=== PATIENT | female | born 1965 | race African-American/Black ===

== ENCOUNTER 2016-12-13 05:30 | Emergency (ER) | payer OTHER ==
[~2016-12-13] VITALS: Ht 165.1 cm; Wt 94.8 kg
[~2016-12-13 05:30] MED LIST: ACYCLOVIR800 MG PO; ALBUTEROL SULF8.5 GM INH; ALBUTEROL2.5 MG/3 M HHN; AZITHROMYCIN250 MG ORAL; BACTRIM DS TAB1 EAC1 ORAL; BACTRIM-DS1 EA ORAL; CEPHALEXIN500 MG ORAL; KEFLEX500 MG ORAL; METAPROTERENOL PO; METAPROTERENOL20 MG PO; NKM
[2016-12-13] MEDS ORDERED: KEFLEX500 MG ORAL (06:00)
[2016-12-13] MEDS ORDERED: Phenazopyridine 200mg tab ORAL ONE (06:00)
[2016-12-13] MEDS ORDERED: PHENAZOPYRIDIN200 MG ORAL (06:00)
[2016-12-13] MEDS ORDERED: Cephalexin 500mg cap ORAL ONE (06:00)
--- NOTE | 2016-12-13 06:00 | Emergency Room Report ---
History of Present Illness General Chief Complaint: Back Pain-No Injury Source: Patient Present Illness HPI This is a 51-year-old female who presents with chief complaint of dysuria, frequency and urgency for the last 2 days. Lower back pain. No vomiting. Denies any nausea vomiting. Denies any diarrhea. History of UTI in the past. Allergies: Coded Allergies: No Known Allergies (Unverified , 12/04/12) Patient History Past Medical History: see triage record, old chart reviewed Past Surgical History: other Pertinent Family History: none Social History: Denies: smoking Last Menstrual Period: November Now: No Immunizations: other Reviewed Nursing Documentation: PMH: Agreed, PSxH: Agreed Nursing Documentation-PMH Hx Cardiac Problems: No Hx Hypertension: Yes Hx Pacemaker: No Hx Asthma: Yes Hx COPD: No Hx Diabetes: No Hx Cancer: No Hx Gastrointestinal Problems: No Hx Dialysis: No Hx Neurological Problems: No Hx Cerebrovascular Accident: No Hx Seizures: No Review of Systems Eye: Denies: blurred vision, eye pain ENT: Denies: ear pain, nose congestion, throat swelling Respiratory: Denies: cough, shortness of breath Cardiovascular: Denies: chest pain, palpitations Gastrointestinal: Denies: abdominal pain, diarrhea, nausea, vomiting Genitourinary: Reports: dysuria, frequency, urgency Musculoskeletal: Denies: back pain, joint pain Skin: Denies: rash Neurological: Denies: headache, numbness Endocrine: Denies: increased thirst, increased urine Hematologic/Lymphatic: Denies: easy bruising All Other Systems: negative except mentioned in HPI Physical Exam Vital Signs Date Time Temp Pulse Resp B/P Pulse Ox O2 Delivery O2 Flow Rate FiO2 12/13/16 05:34 98.8 98 16 154/96 98 Room Air vitals normal except hypertension Sp02 EP Interpretation: reviewed, normal General Appearance: well appearing, no apparent distress, alert Head: normocephalic, atraumatic Eyes: bilateral eye EOMI, bilateral eye PERRL ENT: hearing grossly normal, normal pharynx Neck: full range of motion, supple, no meningismus Respiratory: chest non-tender, lungs clear, normal breath sounds Cardiovascular #1: regular rate, rhythm, no murmur Gastrointestinal: normal bowel sounds, non tender, no mass, no organomegaly, no bruit, non-distended Musculoskeletal: back normal, gait/station normal, normal range of motion Psychiatric: mood/affect normal Skin: warm/dry Medical Decision Making Diagnostic Impression: Primary Impression: UTI (urinary tract infection) Qualified Codes: N30.00 - Acute cystitis without hematuria ER Course Patient presents with UTI. No evidence of pyelonephritis. She looks well. We' ll discharge home. Last Vital Signs Date Time Temp Pulse Resp B/P Pulse Ox O2 Delivery O2 Flow Rate FiO2 12/13/16 05:34 98.8 98 16 154/96 98 Room Air Status: improved Disposition: HOME, SELF-CARE Condition: Stable Scripts Phenazopyridine Hcl* (PYRIDIUM*) 200 Mg Tablet 200 MG ORAL THREE TIMES A DAY, #6 TAB 0 Refills Prov: INA WHITMORE M.D. 12/13/16 Cephalexin* (KEFLEX*) 500 Mg Capsule 500 MG ORAL TID, #21 CAP 0 Refills Prov: INA WHITMORE M.D. 12/13/16 Additional Instructions: Followup with your DrElena in 2-3 days. Increase fluids. Return for fever, chills , nausea vomiting or any concern. INA WHITMORE M.D. Dec 13, 2016 06:00
[2016-12-13 06:04] LABS: APPEARANCE,URINE CLEAR; KETONES,URINE NEGATIVE (NEGATIVE); LEUKOCYTE ESTERASE ,URINE NEGATIVE (NEGATIVE); NITRITE,URINE NEGATIVE (NEGATIVE); PH,URINE 5 (4.5-8.0); PROTEIN,URINE NEGATIVE (NEGATIVE); UROBILINOGEN,URINE NORMAL MG/DL (0.0-1.0)
[2016-12-13 06:20] VITALS: BP 147/92
[2016-12-13 06:21] VITALS: BP 147/92
== END 2016-12-13 06:21 | disposition home or self-care (01) ==
LOC: EMR 06:03
DX: N39.0 Urinary tract infection, site not specified (principal); J45.909 Unspecified asthma, uncomplicated; I10 Essential (primary) hypertension
CPT/HCPCS: 81003; 99284

== ENCOUNTER 2017-03-30 10:20 | Emergency (ER) | payer OTHER ==
[~2017-03-30] VITALS: Ht 165.1 cm; Wt 94.3 kg
[~2017-03-30 10:20] MED LIST changes: +PHENAZOPYRIDIN200 MG ORAL
--- NOTE | 2017-03-30 10:41 | Emergency Room Report ---
History of Present Illness General Chief Complaint: To Be Triaged Source: Patient Present Illness HPI Patient's had increasing pain in her right knee over the last week. She was doing laundry in bed the knee and heard a pop. She was unable to walk after that time. The pain is severe in the knee. She tried taking Aleve. She's never had this problem before. She denies any other trauma. No clots, calf pain/swell, fevers, gout, dysuria, chest pain, dyspnea. 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 Nursing Documentation: PMH: Agreed, PSxH: Agreed Nursing Documentation-PMH Hx Cardiac Problems: No Hx Hypertension: Yes Hx Pacemaker: No Hx Asthma: Yes Hx COPD: No Hx Diabetes: No Hx Cancer: No Hx Gastrointestinal Problems: No Hx Dialysis: No Hx Neurological Problems: No Hx Cerebrovascular Accident: No Hx Seizures: No Review of Systems All Other Systems: negative except mentioned in HPI Physical Exam Vital Signs Date Time Temp Pulse Resp B/P Pulse Ox O2 Delivery O2 Flow Rate FiO2 03/30/17 10:38 98.2 102 18 164/98 96 Room Air Sp02 EP Interpretation: reviewed, normal General Appearance: well appearing, no apparent distress Head: normocephalic, atraumatic Eyes: bilateral eye PERRL, bilateral eye normal inspection ENT: hearing grossly normal, normal voice, moist mucus membranes Neck: full range of motion, supple Respiratory: no respiratory distress, speaking full sentences Musculoskeletal: digits/nails normal, no calf tenderness, other - R knee with minimal effusion, decreased ROM - mainly flexion, lateral ligaments stable, Applies with posterior tenderness, no drawer. Ankle and hip normal. Neurologic: alert, motor strength/tone normal, DTRs symmetric, sensory intact, speech normal Psychiatric: mood/affect normal Skin: no rash Medical Decision Making Diagnostic Impression: Primary Impression: Knee sprain Qualified Codes: S83.91XA - Sprain of unspecified site of right knee, initial encounter ER Course Patient with R knee pain. DDx: sprain, fx, ligament injury. Mechanism more c/ w internal cartilage problem. Xrays indicated as well as analgesia. Xrays normal. Knee immobilizer applied by tech with improvement and good position. Neurovasc normal as checked by me. Patient stable for outpatient observation and treatment Other X-Ray Diagnostic Results Other X-Ray Diagnostic Results : X-Ray ordered: R knee # of Views/Limited Vs Complete: 3 View Indication: Pain EP Interpretation: Yes Interpretation: no dislocation, no soft tissue swelling, no fractures Impression: No acute disease Interpreting ER Provider: Electronic signiture Maikel Lott MD Last Vital Signs Date Time Temp Pulse Resp B/P Pulse Ox O2 Delivery O2 Flow Rate FiO2 03/30/17 12:15 98.2 68 18 164/98 96 Room Air Status: improved Disposition: HOME, SELF-CARE Condition: Improved Scripts Tramadol Hcl* (ULTRAM*) 50 Mg Tablet 50 MG ORAL Q6H Y for For Pain, #12 TAB 0 Refills Prov: Maikel Lott M.D. 03/30/17 Ibuprofen* (MOTRIN*) 600 Mg Tablet 600 MG ORAL Q6H Y for For Pain, #20 TAB Prov: Maikel Lott M.D. 03/30/17 Maikel Lott M.D. Mar 30, 2017 10:41
[2017-03-30] MEDS ORDERED: SYMBICORT 16010.2 G1 IH (10:44)
[2017-03-30 11:00] VITALS: BP 164/98
--- NOTE | 2017-03-30 11:18 | Diagnostic Imaging Report ---
Indication: Pain 3 views of the right knee were obtained. Findings: No acute fracture, malalignment, or joint effusion are identified. Joint space is relatively well-maintained. Bone mineralization is within normal limits for age. Impression: Negative exam
[2017-03-30 12:00] VITALS: BP 154/87
[2017-03-30] MEDS ORDERED: TRAMADOL HCL50 MG ORAL (12:05)
[2017-03-30] MEDS ORDERED: IBUPROFEN600 MG ORAL (12:05)
[2017-03-30 12:15] VITALS: BP 164/98
== END 2017-03-30 12:41 | disposition home or self-care (01) ==
LOC: EMR 10:51
DX: S83.91XA Sprain of unspecified site of right knee, initial encounter (principal); X58.XXXA Exposure to other specified factors, initial encounter; Y93.9 Activity, unspecified; Y92.009 Unspecified place in unspecified non-institutional (private) residence as the place of occurrence of the external cause; I10 Essential (primary) hypertension
CPT/HCPCS: 29530; 99283

== ENCOUNTER 2017-05-12 11:31 | Emergency (ER) | payer OTHER ==
[~2017-05-12] VITALS: Ht 165.1 cm; Wt 90.7 kg
[~2017-05-12 11:31] MED LIST changes: +IBUPROFEN600 MG ORAL; +SYMBICORT 16010.2 G1 IH; +TRAMADOL HCL50 MG ORAL
[2017-05-12 11:40] VITALS: BP 148/96
[2017-05-12] MEDS ORDERED: KEFLEX500 MG ORAL (12:21)
[2017-05-12] MEDS ORDERED: SYMBICORT 16010.2 G1 IH (12:29)
[2017-05-12 12:30] VITALS: BP 148/96
--- NOTE | 2017-05-12 14:28 | Emergency Room Report ---
History of Present Illness General Chief Complaint: Skin Rash/Abscess Source: Patient Present Illness HPI 51-year-old female presents ED for evaluation. Patient is complaining of redness and swelling to the left knee. States she noticed this morning. Slept at a friend's house last night. Believes it is a bedbug. Pain as throbbing, 8/ 10, nonradiating. Denies fevers or chills. Notes full range of motion of the knee. is able to ambulate. No other aggravating relieving factors. Denies any other associated symptom Allergies: Coded Allergies: No Known Allergies (Unverified , 12/04/12) Patient History Past Medical History: HTN, asthma Past Surgical History: none Pertinent Family History: none Social History: Denies: smoking, alcohol use, drug use Last Menstrual Period: Jan, 2017 ?perimenopausal Now: No Immunizations: UTD Reviewed Nursing Documentation: PMH: Agreed, PSxH: Agreed Nursing Documentation-PMH Hx Cardiac Problems: No Hx Hypertension: Yes Hx Pacemaker: No Hx Asthma: Yes Hx COPD: No Hx Diabetes: No Hx Cancer: No Hx Gastrointestinal Problems: No Hx Dialysis: No Hx Neurological Problems: No Hx Cerebrovascular Accident: No Hx Seizures: No Review of Systems All Other Systems: negative except mentioned in HPI Physical Exam Vital Signs Date Time Temp Pulse Resp B/P (MAP) Pulse Ox O2 Delivery O2 Flow Rate FiO2 05/12/17 11:40 98.6 99 16 148/96 97 Room Air Sp02 EP Interpretation: reviewed, normal General Appearance: no apparent distress, alert, GCS 15, non-toxic, obese Head: normocephalic Eyes: bilateral eye normal inspection, bilateral eye PERRL ENT: normal ENT inspection Neck: normal inspection Respiratory: normal inspection Cardiovascular #1: normal inspection Gastrointestinal: normal inspection Rectal: deferred Genitourinary: no CVA tenderness Musculoskeletal: back normal, gait/station normal, normal range of motion, non- tender Neurologic: alert, oriented x3, responsive, motor strength/tone normal, sensory intact, speech normal Psychiatric: normal inspection Skin: other - induration/erythema to anterior aspect L knee. no fluctuance or discharge Lymphatic: normal inspection Medical Decision Making Diagnostic Impression: Primary Impression: Insect bite Qualified Codes: W57.XXXA - Bitten or stung by nonvenomous insect and other nonvenomous arthropods, initial encounter ER Course Hospital Course 51-year-old female presents to ED with redness, swelling to L knee Differential diagnoses include: Cellulitis, dermatitis, insect bite, abscess Clinical course Patient placed on stretcher. After initial history, physical exam reveals a female in no acute distress. On exam there is a site for mild erythema and induration to the L knee just above the patella. There is no fluctuance. There is no tenderness. Full range of motion is noted in the L knee and there is no concern for any signs of infection to the joint. There is no tongue swelling, no stridor, no signs of impending airway. Clinical findings consistent with a insect bite with the possible bacterial superinfection. reassurance given Diagnosis - insect bite stable and discharged to home with prescription for Keflex. Instructed to followup with PMD. Instructed return to ED if symptoms recur or worsen Last Vital Signs Date Time Temp Pulse Resp B/P (MAP) Pulse Ox O2 Delivery O2 Flow Rate FiO2 05/12/17 12:30 98.6 94 16 148/96 97 Room Air Status: improved Disposition: HOME, SELF-CARE Condition: Stable Scripts Budesonide/Formoterol Fumarate (SYMBICORT 160-4.5 MCG INHALER) 10.2 Gm Hfa.aer.ad 1 PUFF IH BID, #1 INH 0 Refills Prov: YADY STANTON M.D. 05/12/17 Cephalexin* (KEFLEX*) 500 Mg Capsule 500 MG ORAL Q6H, #28 CAP 0 Refills Prov: YADY STANTON M.D. 05/12/17 Patient Instructions: Insect Bite, [id number] YADY STANTON M.D. May 12, 2017 14:28
== END 2017-05-12 12:30 | disposition home or self-care (01) ==
LOC: EMR 11:52
DX: S80.262A Insect bite (nonvenomous), left knee, initial encounter (principal); W57.XXXA Bitten or stung by nonvenomous insect and other nonvenomous arthropods, initial encounter; Y92.009 Unspecified place in unspecified non-institutional (private) residence as the place of occurrence of the external cause
CPT/HCPCS: 99283

== ENCOUNTER 2017-09-02 01:07 | Emergency (ER) | payer OTHER ==
[~2017-09-02] VITALS: Ht 165.1 cm; Wt 97.1 kg
--- NOTE | 2017-09-02 01:38 | Emergency Room Report ---
History of Present Illness General Chief Complaint: Chest Pain Source: Patient Present Illness HPI 51-year-old female with pmhx of HTN, asthma p/w chest pain for one to 2 hours. Chest pain started while she was watching TV, resting. Localized to substernal area, +radiation to back, sharp in nature, gradual in onset, states that it is worse with deep inspiration or movement, denies shortness of breath. Denies palpitations, diaphoresis, n/v. Denies fever, chills, cough, abd pain. Denies trauma. Patient has never had a stress test or cardiac catheterization Denies smoking, no family history of cardiac disease at a young age. Denies ever having a clot in the legs or the lungs, no hormonal therapy, no estrogen pills, no recent immobilizations or prolonged travel Allergies: Coded Allergies: No Known Allergies (Unverified , 12/04/12) Patient History Past Medical History: see triage record Past Surgical History: none Pertinent Family History: none Last Menstrual Period: unk Reviewed Nursing Documentation: PMH: Agreed, PSxH: Agreed Nursing Documentation-PMH Hx Cardiac Problems: No Hx Hypertension: Yes Hx Pacemaker: No Hx Asthma: Yes Hx COPD: No Hx Diabetes: No Hx Cancer: No Hx Gastrointestinal Problems: No Hx Dialysis: No Hx Neurological Problems: No Hx Cerebrovascular Accident: No Hx Seizures: No Review of Systems All Other Systems: negative except mentioned in HPI Physical Exam Vital Signs Date Time Temp Pulse Resp B/P (MAP) Pulse Ox O2 Delivery O2 Flow Rate FiO2 09/02/17 01:13 97.3 104 26 159/106 97 Room Air Sp02 EP Interpretation: reviewed, normal General Appearance: alert, GCS 15, non-toxic, mild distress Head: normocephalic, atraumatic Eyes: bilateral eye normal inspection, bilateral eye PERRL, bilateral eye EOMI ENT: normal ENT inspection, normal pharynx, normal voice, moist mucus membranes Neck: normal inspection, full range of motion, supple Respiratory: normal inspection, lungs clear, normal breath sounds, no respiratory distress, no retraction, no wheezing, speaking full sentences, chest symmetrical Cardiovascular #1: normal inspection, regular rate, rhythm, normal capillary refill Cardiovascular #2: 2+ radial (R), 2+ radial (L) Gastrointestinal: normal inspection, non tender, soft, non-distended, no guarding Musculoskeletal: normal inspection, back normal, normal range of motion, non- tender Neurologic: normal inspection, alert, oriented x3, responsive, motor strength/ tone normal, sensory intact, normal gait, speech normal Psychiatric: normal inspection, judgement/insight normal, memory normal Skin: normal inspection, normal color, no rash, warm/dry, well hydrated, normal turgor Medical Decision Making Diagnostic Impression: Primary Impression: Chest pain ER Course 51-year-old female with chest pain DDX: ACS vs. CHF vs. pneumonia vs. gastritis/GERD vs. pneumothorax Pulmonary embolism, aortic dissection Plan: IV access, obtain labs including troponin, EKG, CXR HOLD ASPIRIN FOR NOW ER course: Patient has remained on a monitor, HD stable, chest pain improved. Patient's blood pressure improved, the patient not in pain, she is conversing with has been at bedside Nontoxic appearing D-dimer is negative Chest pain is very reproducible by movement and palpation nad during ed stay dc home trop neg x 2 Disposition: Patient to be DCed to home FU with PMD in 1 week and cardiology 1 week Please note that this Emergency Department Report was dictated using [employer] animation technology software, occasionally this can lead to erroneous entry secondary to interpretation by the dictation equipment. EKG Diagnostic Results EP Interpretation: Yes Rate: normal Rhythm: NSR ST Segments: No acute changes ASA given to patient: No Rhythm Strip EP Interpretation: Yes Rate: 70 Rhythm: NSR, no PVCs, no ectopy Chest X-ray CXR: Ordered: Yes 1 view Indication: Chest pain EP interpretation: Yes Interpretation: No consolidation, no effusion, no PTX, no acute cardiopulmonary disease Impression: No acute disease Electronically signed by Karla Lynch MD Laboratory Tests Test 09/02/17 01:35 09/02/17 04:16 09/02/17 04:17 White Blood Count 10.1 K/UL (4.8-10.8) Red Blood Count 4.02 M/UL (4.20-5.40) L Hemoglobin 13.9 G/DL (12.0-16.0) Hematocrit 41.8 % (37.0-47.0) Mean Corpuscular Volume 104 FL (80-99) H Mean Corpuscular Hemoglobin 34.7 PG (27.0-31.0) H Mean Corpuscular Hemoglobin Concent 33.4 G/DL (32.0-36.0) Red Cell Distribution Width 11.4 % (11.6-14.8) L Platelet Count 293 K/UL (150-450) Mean Platelet Volume 9.2 FL (6.5-10.1) Neutrophils (%) (Auto) 58.5 % (45.0-75.0) Lymphocytes (%) (Auto) 30.8 % (20.0-45.0) Monocytes (%) (Auto) 7.0 % (1.0-10.0) Eosinophils (%) (Auto) 2.5 % (0.0-3.0) Basophils (%) (Auto) 1.2 % (0.0-2.0) D-Dimer 0.38 mg/L FEU (0.00-0.49) Sodium Level 138 MMOL/L (136-145) Potassium Level 3.9 MMOL/L (3.5-5.1) Chloride Level 103 MMOL/L (98-107) Carbon Dioxide Level 27 MMOL/L (21-32) Anion Gap 8 mmol/L (5-15) Blood Urea Nitrogen 18 mg/dL (7-18) Creatinine 0.9 MG/DL (0.55-1.30) Estimate Glomerular Filtration Rate > 60 mL/min (>60) Glucose Level 113 MG/DL (74-106) H Calcium Level 8.8 MG/DL (8.5-10.1) Total Bilirubin 0.3 MG/DL (0.2-1.0) Aspartate Amino Transferase (AST) 15 U/L (15-37) Alanine Aminotransferase (ALT) 21 U/L (12-78) Alkaline Phosphatase 79 U/L (46-116) Troponin I 0.000 ng/mL (0.000-0.056) 0.000 ng/mL (0.000-0.056) Pro-B-Type Natriuretic Peptide 9 pg/mL (0-125) Total Protein 7.4 G/DL (6.4-8.2) Albumin 3.6 G/DL (3.4-5.0) Globulin 3.8 g/dL Albumin/Globulin Ratio 0.9 (1.0-2.7) L Urine Color Yellow Urine Appearance Clear Urine pH 5 (4.5-8.0) Urine Specific [place] 1.025 (1.005-1.035) Urine Protein 2+ (NEGATIVE) H Urine Glucose (UA) Negative (NEGATIVE) Urine Ketones Negative (NEGATIVE) Urine Occult Blood Negative (NEGATIVE) Urine Nitrite Negative (NEGATIVE) Urine Bilirubin Negative (NEGATIVE) Urine Urobilinogen Normal MG/DL (0.0-1.0) Urine Leukocyte Esterase 1+ (NEGATIVE) H Urine RBC 0-2 /HPF (0 - 2) Urine WBC 0-2 /HPF (0 - 2) Urine Squamous Epithelial Cells Moderate /LPF (NONE/OCC) H Urine Bacteria Few /HPF (NONE) Last Vital Signs Date Time Temp Pulse Resp B/P (MAP) Pulse Ox O2 Delivery O2 Flow Rate FiO2 09/02/17 01:13 97.3 104 26 159/106 97 Room Air Disposition: HOME, SELF-CARE Condition: Improved Patient Instructions: Nonspecific Chest Pain Karla Lynch M.D. Sep 02, 2017 01:38
[2017-09-02 03:48] LABS: BASOPHILS % (AUTO) 1.2 % (0.0-2.0); EOSINOPHILS % (AUTO) 2.5 % (0.0-3.0); LYMPHOCYTES % (AUTO) 30.8 % (20.0-45.0); MEAN CORPUSCULAR HEMOGLOBIN 34.7 PG (27.0-31.0); MEAN CORPUSCULAR HGB CONC 33.4 G/DL (32.0-36.0); MEAN CORPUSCULAR VOLUME 104 FL (80-99); MEAN PLATELET VOLUME 9.2 FL (6.5-10.1); NEUTROPHILS % (AUTO) 58.5 % (45.0-75.0); PLATELET COUNT 293 K/UL (150-450); RED BLOOD COUNT 4.02 M/UL (4.20-5.40); RED CELL DISTRIBUTION WIDTH 11.4 % (11.6-14.8); WHITE BLOOD COUNT 10.1 K/UL (4.8-10.8)
[2017-09-02 03:59] LABS: ANION GAP 8 mmol/L (5-15); CALCIUM 8.8 MG/DL (8.5-10.1); CARBON DIOXIDE 27 MMOL/L (21-32); CHLORIDE 103 MMOL/L (98-107); CREATININE 0.9 MG/DL (0.55-1.30); GLOMERULAR FILTRATION RATE > 60 mL/min (>60); POTASSIUM 3.9 MMOL/L (3.5-5.1); SODIUM 138 MMOL/L (136-145)
[2017-09-02 04:10] LABS: ALANINE AMINOTRANSFERASE 21 U/L (12-78); ALBUMIN/GLOBULIN RATIO 0.9 (1.0-2.7); ASPARTATE AMINO TRANSFERASE 15 U/L (15-37); TOTAL PROTEIN 7.4 G/DL (6.4-8.2)
[2017-09-02 04:34] LABS: APPEARANCE,URINE CLEAR; KETONES,URINE NEGATIVE (NEGATIVE); LEUKOCYTE ESTERASE ,URINE 1+ (NEGATIVE); NITRITE,URINE NEGATIVE (NEGATIVE); PH,URINE 5 (4.5-8.0); PROTEIN,URINE 2+ (NEGATIVE); UROBILINOGEN,URINE NORMAL MG/DL (0.0-1.0)
[2017-09-02 04:43] LABS: BACTERIA,URINE FEW /HPF; RBC,URINE 0-2 /HPF (0 - 2); SQUAMOUS EPITHELIAL CELL,UR MODERATE /LPF (NONE/OCC); WBC,URINE 0-2 /HPF (0 - 2)
[2017-09-02 06:07] VITALS: BP 122/97
--- NOTE | 2017-09-02 11:04 | Diagnostic Imaging Report ---
Indication: Chest pain Technique: XRAY Chest 1v Comparison: 05/29/2015 Findings: Heart size and mediastinal contours are within normal limits given technique. Haziness of the bilateral mid and lower lungs likely related to attenuation from overlying soft tissues. There is no focal consolidation, pneumothorax or pleural effusion. Osseous structures demonstrate no acute abnormality. Impression: No radiographic evidence of acute cardiopulmonary disease.
--- NOTE | 2017-09-13 19:18 | Cardiology Report ---
APPROVED REPORT EKG Measurement Heart [id number] Normal sinus rhythm Possible Left atrial enlargement Septal infarct, age undetermined Abnormal ECG
== END 2017-09-02 06:07 | disposition home or self-care (01) ==
LOC: EMR 04:42
DX: R07.89 Other chest pain (principal); I10 Essential (primary) hypertension; J45.909 Unspecified asthma, uncomplicated
CPT/HCPCS: 36415; 71010; 80053; 81003; 83880; 84484; 85025; 85379; 93005; 99284

== ENCOUNTER 2017-10-20 17:27 | Emergency (ER) | payer OTHER ==
[~2017-10-20] VITALS: Ht 165.1 cm; Wt 97.1 kg
[2017-10-20] MEDS ORDERED: Lidocaine 2% Visc 15ml soln ORAL ONE (18:15)
[2017-10-20] MEDS ORDERED: Mylanta II UD 30ml ORAL ONE (18:15)
--- NOTE | 2017-10-20 18:27 | Emergency Room Report ---
History of Present Illness General Chief Complaint: Chest Pain Source: Patient Present Illness HPI Patient presents with severe chest pain. Started approximately 3:30 this afternoon. She watching TV and laying back. She felt pressure in her chest. She tried taking [id number] medications including omeprazole and bicarbonate. Didn't help her. The pain did get better on its own for a little bit, but then started back severely in the car when she was coming here. Pain rated 10/10 when she has it, but denies pain now. Radiates to her back. She was seen in August with a similar complaint. We stated her heart was OK but didn't give her a diagnosis. Denies any fevers, productive cough, nausea, vomiting, diarrhea, melena. RF = smoking, HTN Denies Fam Hx, cholesterol, diabetes Allergies: Coded Allergies: No Known Allergies (Unverified , 12/04/12) Patient History Past Medical History: see triage record Social History: Reports: smoking, alcohol use Social History Narrative Last Menstrual Period: Jul, 2017 Reviewed Nursing Documentation: PMH: Agreed, PSxH: Agreed Nursing Documentation-PMH Past Medical History: No History, Except For Hx Cardiac Problems: No Hx Hypertension: Yes Hx Pacemaker: No Hx Asthma: Yes Hx COPD: No Hx Diabetes: No Hx Cancer: No Hx Gastrointestinal Problems: No Hx Dialysis: No Hx Neurological Problems: No Hx Cerebrovascular Accident: No Hx Seizures: No Review of Systems All Other Systems: negative except mentioned in HPI Physical Exam Vital Signs Date Time Temp Pulse Resp B/P (MAP) Pulse Ox O2 Delivery O2 Flow Rate FiO2 10/20/17 17:44 98.1 101 18 143/92 99 Room Air Sp02 EP Interpretation: reviewed, normal General Appearance: well appearing, no apparent distress, GCS 15 Head: normocephalic Eyes: bilateral eye normal inspection, bilateral eye PERRL ENT: moist mucus membranes Neck: supple Respiratory: lungs clear, normal breath sounds Cardiovascular #1: regular rate, rhythm Cardiovascular #2: 2+ radial (R) Gastrointestinal: normal inspection, normal bowel sounds, no mass, non- distended, no guarding, no rebound, tenderness - epigastric regeon Musculoskeletal: back normal, gait/station normal, normal range of motion, no calf tenderness Neurologic: alert, oriented x3, motor strength/tone normal, grossly normal Psychiatric: anxious Skin: normal inspection, warm/dry Medical Decision Making Diagnostic Impression: Primary Impression: Chest pain Qualified Codes: R07.9 - Chest pain, unspecified Additional Impression: Gastritis Qualified Codes: K29.00 - Acute gastritis without bleeding ER Course Patient presents with severe intermittent chest pain. Ddx: esophageal spasm, AMI, gastritis, aneurism, GERD amongst others. Evaluation with EKG, CXR, labs. History is atypical for cardiac disease. Also hx and exam against PE. Treatment with pepcid, mylanta and viscous lido with cardiac monitoring. EKG without injury. CXR no widened mediastinum or othre pathology. Labs sig for MCV 103, rest of CBC, CMP, troponin normal. Pain returned. Morphine given. Pain resolved. Discussed need for further evaluation and w/u. Patient stable for outpatient observation and treatment. Laboratory Tests Test 10/20/17 18:15 10/20/17 19:50 White Blood Count 10.4 K/UL (4.8-10.8) Red Blood Count 4.19 M/UL (4.20-5.40) L Hemoglobin 14.4 G/DL (12.0-16.0) Hematocrit 43.3 % (37.0-47.0) Mean Corpuscular Volume 103 FL (80-99) H Mean Corpuscular Hemoglobin 34.3 PG (27.0-31.0) H Mean Corpuscular Hemoglobin Concent 33.3 G/DL (32.0-36.0) Red Cell Distribution Width 11.4 % (11.6-14.8) L Platelet Count 250 K/UL (150-450) Mean Platelet Volume 8.7 FL (6.5-10.1) Neutrophils (%) (Auto) 64.1 % (45.0-75.0) Lymphocytes (%) (Auto) 25.3 % (20.0-45.0) Monocytes (%) (Auto) 7.7 % (1.0-10.0) Eosinophils (%) (Auto) 1.9 % (0.0-3.0) Basophils (%) (Auto) 1.0 % (0.0-2.0) Prothrombin Time 11.1 SEC (9.30-11.50) Prothrombin Time INR 1.1 (0.9-1.1) PTT 29 SEC (23-33) Sodium Level 136 MMOL/L (136-145) Potassium Level 3.7 MMOL/L (3.5-5.1) Chloride Level 102 MMOL/L (98-107) Carbon Dioxide Level 29 MMOL/L (21-32) Anion Gap 5 mmol/L (5-15) Blood Urea Nitrogen 12 mg/dL (7-18) Creatinine 0.9 MG/DL (0.55-1.30) Estimate Glomerular Filtration Rate > 60 mL/min (>60) Glucose Level 115 MG/DL (74-106) H Calcium Level 9.0 MG/DL (8.5-10.1) Total Bilirubin 0.3 MG/DL (0.2-1.0) Aspartate Amino Transferase (AST) 16 U/L (15-37) Alanine Aminotransferase (ALT) 24 U/L (12-78) Alkaline Phosphatase 85 U/L (46-116) Total Creatine Kinase 82 U/L (26-308) Troponin I 0.002 ng/mL (0.000-0.056) Pro-B-Type Natriuretic Peptide 10 pg/mL (0-125) Total Protein 7.1 G/DL (6.4-8.2) Albumin 3.4 G/DL (3.4-5.0) Globulin 3.7 g/dL Albumin/Globulin Ratio 0.9 (1.0-2.7) L Urine Color Yellow Urine Appearance Clear Urine pH 8 (4.5-8.0) Urine Specific Cammal 1.010 (1.005-1.035) Urine Protein 1+ (NEGATIVE) H Urine Glucose (UA) Negative (NEGATIVE) Urine Ketones Negative (NEGATIVE) Urine Occult Blood 1+ (NEGATIVE) H Urine Nitrite Negative (NEGATIVE) Urine Bilirubin Negative (NEGATIVE) Urine Urobilinogen Normal MG/DL (0.0-1.0) Urine Leukocyte Esterase 1+ (NEGATIVE) H Urine RBC 0-2 /HPF (0 - 2) Urine WBC 2-4 /HPF (0 - 2) Urine Squamous Epithelial Cells Moderate /LPF (NONE/OCC) H Urine Amorphous Sediment Few /LPF (NONE) H Urine Bacteria Few /HPF (NONE) EKG Diagnostic Results Rate: normal, tachycardiac ST Segments: no acute changes Rhythm Strip Diag. Results EP Interpretation: yes Rhythm: no PVC's, no ectopy, other - ST Chest X-Ray Diagnostic Results Chest X-Ray Diagnostic Results : Chest X-Ray Ordered: Yes # of Views/Limited/Complete: 1 View Indication: Chest Pain EP Interpretation: Yes Interpretation: no consolidation, no effusion, no pneumothorax Impression: No acute disease Electronically Signed by: Electronically signed by Maikel Lott MD Last Vital Signs Date Time Temp Pulse Resp B/P (MAP) Pulse Ox O2 Delivery O2 Flow Rate FiO2 10/20/17 22:06 98.1 95 21 134/95 95 Room Air Status: improved Disposition: HOME, SELF-CARE Condition: Improved Scripts Tramadol Hcl* (ULTRAM*) 50 Mg Tablet 50 MG ORAL Q6H Y for For Pain, #12 TAB 0 Refills Prov: Maikel Lott M.D. 10/20/17 Famotidine (PEPCID) 20 Mg Tablet 20 MG ORAL DAILY, #30 TAB 0 Refills Prov: Maikel Lott M.D. 10/20/17 Maikel Lott M.D. Oct 20, 2017 18:27
[2017-10-20 18:39] LABS: EOSINOPHILS % (AUTO) 1.9 % (0.0-3.0); HEMATOCRIT 43.3 % (37.0-47.0); HEMOGLOBIN 14.4 G/DL (12.0-16.0); LYMPHOCYTES % (AUTO) 25.3 % (20.0-45.0); MEAN CORPUSCULAR VOLUME 103 FL (80-99); MONOCYTES % (AUTO) 7.7 % (1.0-10.0); NEUTROPHILS % (AUTO) 64.1 % (45.0-75.0); PLATELET COUNT 250 K/UL (150-450); RED BLOOD COUNT 4.19 M/UL (4.20-5.40); RED CELL DISTRIBUTION WIDTH 11.4 % (11.6-14.8); WHITE BLOOD COUNT 10.4 K/UL (4.8-10.8)
[2017-10-20 18:42] LABS: INR 1.1 (0.9-1.1)
[2017-10-20 18:58] LABS: ANION GAP 5 mmol/L (5-15); BLOOD UREA NITROGEN 12 mg/dL (7-18); CARBON DIOXIDE 29 MMOL/L (21-32); CHLORIDE 102 MMOL/L (98-107); CREATININE 0.9 MG/DL (0.55-1.30); POTASSIUM 3.7 MMOL/L (3.5-5.1); SODIUM 136 MMOL/L (136-145)
[2017-10-20] MEDS ORDERED: Morphine Sulfate 4mg/ml Inj IVP ONE (19:00)
[2017-10-20 19:09] LABS: ALANINE AMINOTRANSFERASE 24 U/L (12-78); ALBUMIN 3.4 G/DL (3.4-5.0); ALBUMIN/GLOBULIN RATIO 0.9 (1.0-2.7); ALKALINE PHOSPHATASE 85 U/L (46-116); ASPARTATE AMINO TRANSFERASE 16 U/L (15-37); BILIRUBIN,TOTAL 0.3 MG/DL (0.2-1.0); CREATINE KINASE 82 U/L (26-308)
[2017-10-20] MEDS ORDERED: DiphenhydrAMINE 50mg/ml Inj ONE (19:16)
[2017-10-20] MEDS ORDERED: DiphenhydrAMINE 50mg/ml Inj IVP ONE (19:30)
[2017-10-20 19:33] VITALS: BP 128/105
[2017-10-20 20:06] LABS: APPEARANCE,URINE CLEAR; BILIRUBIN, URINE NEGATIVE (NEGATIVE); GLUCOSE, URINE (UA) NEGATIVE (NEGATIVE); KETONES,URINE NEGATIVE (NEGATIVE); LEUKOCYTE ESTERASE ,URINE 1+ (NEGATIVE); NITRITE,URINE NEGATIVE (NEGATIVE); PH,URINE 8 (4.5-8.0); PROTEIN,URINE 1+ (NEGATIVE); UROBILINOGEN,URINE NORMAL MG/DL (0.0-1.0)
[2017-10-20 20:07] LABS: COLOR,URINE YELLOW
[2017-10-20] MEDS ORDERED: PEPCID20 MG ORAL (21:57)
[2017-10-20] MEDS ORDERED: TRAMADOL HCL50 MG ORAL (21:57)
[2017-10-20 21:58] VITALS: BP 134/95
[2017-10-20 22:06] VITALS: BP 134/95
--- NOTE | 2017-10-21 09:37 | Diagnostic Imaging Report ---
Indication: Chest pain Technique: XRAY Chest 1v Comparison: 09/02/2017 in 05/29/2015 Findings: Heart size and mediastinal contours are within normal limits stable compared to the prior exam. Haziness of the bilateral mid and lower lungs likely related to underpenetration secondary to overlying soft tissues. There is no focal consolidation, pneumothorax or pleural effusion. Osseous structures demonstrate no acute abnormality. Impression: No radiographic evidence of acute cardiopulmonary disease.
--- NOTE | 2017-10-24 17:00 | Cardiology Report ---
APPROVED REPORT EKG Measurement Heart [id number] Sinus tachycardia Possible Left atrial enlargement Septal infarct, age undetermined Abnormal ECG
== END 2017-10-20 22:19 | disposition home or self-care (01) ==
LOC: EMR 18:55
DX: R07.89 Other chest pain (principal); K29.70 Gastritis, unspecified, without bleeding; J45.909 Unspecified asthma, uncomplicated; I10 Essential (primary) hypertension; F17.200 Nicotine dependence, unspecified, uncomplicated
CPT/HCPCS: 36415; 71045; 80053; 81003; 82550; 83880; 84484; 85025; 85610; 85730; 93005; 96374; 96375; 99284; J1200; J2270; S0028

== ENCOUNTER 2017-11-20 01:09 | Emergency (ER) | payer OTHER ==
[~2017-11-20] VITALS: Ht 165.1 cm; Wt 98.0 kg
[~2017-11-20 01:09] MED LIST changes: +PEPCID20 MG ORAL
[2017-11-20 01:25] VITALS: BP 138/83
[2017-11-20] MEDS ORDERED: Lidocaine 1% MPF 10mg/ml 5ml INJ ONE (01:45)
[2017-11-20] MEDS ORDERED: Albuterol/Ipratropium 3ml neb HHN ONE (01:45)
[2017-11-20] MEDS ORDERED: KEFLEX500 MG ORAL (02:04)
[2017-11-20] MEDS ORDERED: PREDNISONE20 MG ORAL (02:04)
[2017-11-20] MEDS ORDERED: ALBUTEROL SULF8.5 GM INH (02:04)
[2017-11-20 02:45] VITALS: BP 138/83
--- NOTE | 2017-11-27 23:30 | Emergency Room Report ---
History of Present Illness General Chief Complaint: General Complaint Source: Patient Present Illness HPI Patient is a 52-year-old female presented after increased cough and congestion. Patient gradual onset of symptoms. She prior history of hidradenitis. Patient had nonproductive cough. She had not been having any diarrhea. Allergies: Coded Allergies: No Known Allergies (Unverified , 12/04/12) Patient History Past Medical History: see triage record Last Menstrual Period: "spotting now" Now: No Reviewed Nursing Documentation: PMH: Agreed, PSxH: Agreed Nursing Documentation-PMH Hx Cardiac Problems: No Hx Hypertension: Yes Hx Pacemaker: No Hx Asthma: Yes Hx COPD: No Hx Diabetes: No Hx Cancer: No Hx Gastrointestinal Problems: No Hx Dialysis: No Hx Neurological Problems: No Hx Cerebrovascular Accident: No Hx Seizures: No Review of Systems All Other Systems: negative except mentioned in HPI Physical Exam Vital Signs Date Time Temp Pulse Resp B/P (MAP) Pulse Ox O2 Delivery O2 Flow Rate FiO2 11/20/17 01:14 99.0 111 18 138/83 98 Room Air 99.0 11/20/17 02:27 21 General Appearance: well appearing, no apparent distress, alert, GCS 15, non- toxic Head: normocephalic, atraumatic ENT: hearing grossly normal, normal voice Neck: full range of motion, supple Respiratory: no respiratory distress, speaking full sentences Gastrointestinal: normal inspection, normal bowel sounds Musculoskeletal: no calf tenderness Neurologic: normal gait Psychiatric: mood/affect normal Skin: no rash Medical Decision Making Diagnostic Impression: Primary Impression: Bronchitis Additional Impression: Suppurative hidradenitis ER Course Patient presented for cough. Differential diagnosis included but was not limited to bronchitis, pneumonia, pulmonary embolism, pericarditis, asthma, foreign body. Patient has a benign exam and does not appear to require any further imaging or laboratory testing at this time. Patient was given prescription for Keflex for hidradenitis lesion which does not appear to require incision and drainage but appears mildly infected. The patient is advised to follow up with primary care doctor in 1-2 days. Patient is advised to return if any worsening condition or if any changes in status that are concerning. This report is dictated with Outline App patch driller software which may occasionally lead to discrepancies related to use of this software. Last Vital Signs Date Time Temp Pulse Resp B/P (MAP) Pulse Ox O2 Delivery O2 Flow Rate FiO2 11/20/17 02:45 99.0 18 138/83 92 Room Air 21 99.0 11/20/17 02:40 79 Status: improved Disposition: HOME, SELF-CARE Condition: Stable Scripts Prednisone* (PREDNISONE*) 20 Mg Tablet 40 MG ORAL DAILY, #8 TAB Prov: Min Reed 11/20/17 Albuterol Sulfate* (ALBUTEROL SULFATE MDI*) 8.5 Gm Hfa.aer.ad 2 PUFF INH Q6H, #1 EA 0 Refills Prov: Min Reed 11/20/17 Cephalexin* (KEFLEX*) 500 Mg Capsule 500 MG ORAL EVERY 6 HOURS, #28 CAP 0 Refills Prov: Min Reed 11/20/17 Referrals: [facility],REFERRING (PCP) Patient Instructions: Acute Bronchitis, [id number] Min Reed Nov 27, 2017 23:30
== END 2017-11-20 02:45 | disposition home or self-care (01) ==
LOC: EMR 01:30
DX: J45.909 Unspecified asthma, uncomplicated (principal); L73.2 Hidradenitis suppurativa; I10 Essential (primary) hypertension
CPT/HCPCS: 94640; 94664; 99284; J7512; J7620

== ENCOUNTER 2017-12-01 20:31 | Emergency (ER) | payer OTHER ==
[~2017-12-01] VITALS: Ht 167.6 cm; Wt 98.9 kg
[~2017-12-01 20:31] MED LIST changes: +PREDNISONE20 MG ORAL
--- NOTE | 2017-12-01 20:54 | Emergency Room Report ---
History of Present Illness General Chief Complaint: Dyspnea/Respdistress Source: Patient Present Illness HPI Patient is a 52-year-old female who presented after a continued cough. Patient had recently been seen at the hospital. She had been given protrusion for steroids as well as an albuterol inhaler. She reports having improvement in her cough however she continued to have some residual cough. Patient states that she has not been able to see primary care physician. She denies any recent fever. She denied leg pain or swelling. The cough is worse at nighttime. Allergies: Coded Allergies: No Known Allergies (Unverified , 12/01/17) Patient History Past Medical History: see triage record Last Menstrual Period: 11/20/2017 Reviewed Nursing Documentation: PMH: Agreed, PSxH: Agreed Nursing Documentation-PMH Past Medical History: No History, Except For Hx Cardiac Problems: No Hx Hypertension: Yes Hx Pacemaker: No Hx Asthma: Yes Hx COPD: No Hx Diabetes: No Hx Cancer: No Hx Gastrointestinal Problems: No Hx Dialysis: No Hx Neurological Problems: No Hx Cerebrovascular Accident: No Hx Seizures: No Review of Systems All Other Systems: negative except mentioned in HPI Physical Exam Vital Signs Date Time Temp Pulse Resp B/P (MAP) Pulse Ox O2 Delivery O2 Flow Rate FiO2 12/01/17 20:37 98.6 109 22 148/99 98 Room Air 98.6 General Appearance: well appearing, no apparent distress, alert, GCS 15 Head: normocephalic, atraumatic ENT: hearing grossly normal, normal voice Neck: full range of motion, supple Respiratory: chest non-tender, lungs clear, normal breath sounds, no respiratory distress, speaking full sentences Cardiovascular #1: normal peripheral pulses, regular rate, rhythm, no edema, no gallop Gastrointestinal: normal inspection Musculoskeletal: normal inspection, no calf tenderness Neurologic: normal inspection, alert, oriented x3, responsive, special effects person III-XII nml as tested, motor strength/tone normal, normal gait Psychiatric: mood/affect normal Skin: no rash Medical Decision Making Diagnostic Impression: Primary Impression: Bronchitis ER Course Patient presented for cough. Differential diagnosis included but was not limited to bronchitis, pneumonia, pulmonary embolism, pericarditis, asthma, foreign body. Patient has a benign exam and does not appear to require any further imaging or laboratory testing at this time. The patient was given prescription for antihistamines as well as for oral steroids. Albuterol was renewed. Patient does not appear to have any evidence of any bacterial infection at this time. The patient is advised to follow up with primary care doctor in 1-2 days. Patient is advised to return if any worsening condition or if any changes in status that are concerning. This report is dictated with Ingresse nursing assistant software which may occasionally lead to discrepancies related to use of this software. Last Vital Signs Date Time Temp Pulse Resp B/P (MAP) Pulse Ox O2 Delivery O2 Flow Rate FiO2 12/01/17 20:48 109 22 Room Air 12/01/17 20:37 98.6 148/99 98 98.6 Status: improved Disposition: HOME, SELF-CARE Condition: Stable Min Reed Dec 01, 2017 20:54
[2017-12-01] MEDS ORDERED: CLARITIN10 M2 ORAL (20:55)
[2017-12-01] MEDS ORDERED: ALBUTEROL SULF8.5 GM INH (20:55)
[2017-12-01] MEDS ORDERED: PREDNISONE20 MG ORAL (20:55)
[2017-12-01 21:05] VITALS: BP 148/99
== END 2017-12-02 01:19 | disposition home or self-care (01) ==
LOC: EMR 21:02
DX: J45.909 Unspecified asthma, uncomplicated (principal); I10 Essential (primary) hypertension
CPT/HCPCS: 99282

== ENCOUNTER 2018-09-10 15:24 | Emergency (ER) | payer OTHER ==
[~2018-09-10] VITALS: Ht 165.1 cm; Wt 104.3 kg
[~2018-09-10 15:24] MED LIST changes: +ACETAMINOPHEN-1 EAC1 ORAL; +CLARITIN10 M2 ORAL
--- NOTE | 2018-09-10 16:18 | Diagnostic Imaging Report ---
EXAM: XR Right Hand Complete, 3 or More Views CLINICAL HISTORY: PAIN TECHNIQUE: Frontal, lateral and oblique views of the right hand. COMPARISON: No relevant prior studies available. FINDINGS: Bones/joints: Unremarkable. No visible displaced fracture. No dislocation. No osseous erosions. Visualized joint spaces appear unremarkable. Soft tissues: Unremarkable. No radiopaque foreign body. IMPRESSION: Unremarkable right hand x-rays.
[2018-09-10 16:23] VITALS: BP 152/87
[2018-09-10] MEDS ORDERED: IBUPROFEN600 MG ORAL (16:30)
[2018-09-10] MEDS ORDERED: AUGMENTIN 875-1 EAC1 ORAL (16:30)
[2018-09-10 16:39] VITALS: BP 152/87
--- NOTE | 2018-09-10 21:26 | Emergency Room Report ---
History of Present Illness General Chief Complaint: Upper Extremity Injury Source: Patient Present Illness HPI The patient is a 52-year-old female presenting for pain of the right hand. The patient first noticed callused lesions of both hands which started 1 month prior. She then noticed pain and swelling of her right index and middle finger yesterday. She denies any known injury to these areas. She does admit to filing down the calluses at home but denies any bleeding from the areas. Pain is a 3 out of 10 dull ache and does not radiate. Worse with hand movement and touch. She denies history of rheumatoid arthritis She denies other symptoms including nausea, vomiting, fever, chills, rash Allergies: Coded Allergies: No Known Allergies (Unverified , 12/01/17) Patient History Past Medical History: see triage record Pertinent Family History: none Reviewed Nursing Documentation: PMH: Agreed; PSxH: Agreed Nursing Documentation-PMH Past Medical History: No History, Except For Hx Cardiac Problems: No Hx Hypertension: Yes Hx Pacemaker: No Hx Asthma: Yes Hx COPD: No Hx Diabetes: No Hx Cancer: No Hx Gastrointestinal Problems: No Hx Dialysis: No Hx Neurological Problems: No Hx Cerebrovascular Accident: No Hx Seizures: No Review of Systems All Other Systems: negative except mentioned in HPI Physical Exam Vital Signs Date Time Temp Pulse Resp B/P (MAP) Pulse Ox O2 Delivery O2 Flow Rate FiO2 09/10/18 15:27 98.4 118 18 158/98 98 Room Air Sp02 EP Interpretation: reviewed, normal General Appearance: no apparent distress, alert, GCS 15, non-toxic Head: normocephalic, atraumatic Respiratory: chest non-tender, lungs clear, normal breath sounds, speaking full sentences Cardiovascular #1: regular rate, rhythm, no edema Musculoskeletal: back normal, gait/station normal, normal range of motion, swelling - R 2nd finger, tender - TTP to the R 2nd and 3rd fingers Neurologic: alert, oriented x3, responsive, motor strength/tone normal, sensory intact, speech normal Psychiatric: judgement/insight normal, memory normal, mood/affect normal, no suicidal/homicidal ideation Skin: no rash, warm/dry, well hydrated, other - erythema to R 2nd finger Medical Decision Making PA Attestation Dr. Harding is my supervising physician. Patient management was discussed with my supervising physician Diagnostic Impression: Primary Impression: Cellulitis of hand ER Course The patient is a 52-year-old female presenting for pain of the right hand. Differential diagnosis considered but not limited to: Cellulitis, paronychia, tenosynovitis, sprain, herpetic lesion, rheumatoid arthritis, among others Physical exam: Afebrile. No apparent distress Palmar surface of bilateral hands reveal thickened, hyperpigmented lesions of the IP joints. There is some swelling, erythema, and tenderness to the right second and third fingers. Full active range of motion is intact Sensation is intact to light touch No fluctuance X-ray of the right hand is unremarkable Doctor Mehdi evaluated the patient and has spoken with a hand specialist. The patient will be discharged home with a prescription for antibiotics and pain medication. She was told that she needs to follow-up with a primary doctor as soon as possible and possibly obtain referral for hand specialist and/ or dermatology. She was given strict ER precautions Other X-Ray Diagnostic Results Other X-Ray Diagnostic Results : X-Ray ordered: R hand # of Views/Limited Vs Complete: 3 View, Complete Indication: Pain EP Interpretation: Yes PA Xray: Interpretation reviewed, by supervising MD, and agrees with findings. Interpretation: no dislocation, no soft tissue swelling, no fractures Impression: No acute disease Electronically Signed by: Joel Vines PA-C Last Vital Signs Date Time Temp Pulse Resp B/P (MAP) Pulse Ox O2 Delivery O2 Flow Rate FiO2 09/10/18 16:39 98.5 78 20 152/87 99 Room Air Status: improved Disposition: HOME, SELF-CARE Condition: Improved Scripts Ibuprofen* (MOTRIN*) 600 Mg Tablet 600 MG ORAL Q8H PRN for For Pain, #30 TAB 0 Refills Prov: JOEL VINES P.A. 09/10/18 Amoxicillin/Potassium Clav 875-125* (AUGMENTIN 875-125 TABLET*) 1 Each Tablet 1 TAB ORAL TWICE A DAY, #14 TAB Prov: JOEL VINES P.A. 09/10/18 Patient Instructions: Cellulitis Additional Instructions: I discussed my findings with the patient. All questions and concerns have been answered. Treatment and medication compliance have been addressed. I advised the patient that they need to follow up with primary doctor as soon as possible. Return to ER if symptoms worsen, symptoms continue, new symptoms arise such as fever,or if needed for any reason. Patient verbalized understanding of discharge instructions. JOEL VINES Sep 10, 2018 21:26
== END 2018-09-10 16:40 | disposition home or self-care (01) ==
LOC: EMR 15:40
DX: L03.113 Cellulitis of right upper limb (principal); M79.641 Pain in right hand; I10 Essential (primary) hypertension; J45.909 Unspecified asthma, uncomplicated
CPT/HCPCS: 99283

== ENCOUNTER 2018-11-09 11:04 | Emergency (ER) | payer OTHER ==
[~2018-11-09] VITALS: Ht 167.6 cm; Wt 108.9 kg
[~2018-11-09 11:04] MED LIST changes: +AUGMENTIN 875-1 EAC1 ORAL
--- NOTE | 2018-11-09 11:24 | NUR ---
ED Nurse Note: Pt came into the Er w/ complaints of left knee pain and swelling noted. Pt is complaining of 8/10 left knee pain.
[2018-11-09 11:25] VITALS: BP 160/95
[2018-11-09] MEDS ORDERED: Acetaminophen 500mg (ES) tab ORAL ONE (12:00)
--- NOTE | 2018-11-09 12:03 | Emergency Room Report ---
History of Present Illness General Chief Complaint: Pain Source: Patient Present Illness HPI Patient presents with left knee pain and swelling. She has difficulty ambulating. She tried taking Tylenol several days ago which helped a little bit. She denies any fevers or chills. The pain is also in her groin area recently. It seems to be radiating from the knee to the groin area. She denies trauma. She is not taking water pills. She has not history of gout. History of asthma - no wheezing. She has some popping in her neck when she moves her head about. H/O gastritis No fevers, chills, chest pain, palpitations, nausea, vomiting, diarrhea, dysuria , abdominal pain, shortness of breath, depression, visual changes, headache. Allergies: Coded Allergies: No Known Allergies (Unverified , 12/01/17) Patient History Past Medical History: see triage record Social History: Denies: smoking Social History Narrative from home Last Menstrual Period: menopause Reviewed Nursing Documentation: PMH: Agreed; PSxH: Agreed Nursing Documentation-PMH Past Medical History: No History, Except For Hx Cardiac Problems: No Hx Hypertension: Yes Hx Pacemaker: No Hx Asthma: Yes Hx COPD: No Hx Diabetes: No Hx Cancer: No Hx Gastrointestinal Problems: No Hx Dialysis: No Hx Neurological Problems: No Hx Cerebrovascular Accident: No Hx Seizures: No Review of Systems All Other Systems: negative except mentioned in HPI Physical Exam Vital Signs Date Time Temp Pulse Resp B/P (MAP) Pulse Ox O2 Delivery O2 Flow Rate FiO2 11/09/18 11:12 97.9 99 18 161/97 100 Room Air Sp02 EP Interpretation: reviewed, normal General Appearance: well appearing, no apparent distress Head: normocephalic, atraumatic Eyes: bilateral eye normal inspection, bilateral eye PERRL ENT: hearing grossly normal, normal voice, moist mucus membranes Neck: full range of motion, supple Respiratory: no respiratory distress, speaking full sentences Cardiovascular #1: regular rate, rhythm Cardiovascular #2: 2+ radial (L), 2+ dorsalis pedis (L) Gastrointestinal: normal inspection Musculoskeletal: back normal, other - Muscle tenderness left groin. No hip pain. Knee effusion. Medial ligament tenderness. No laxity. No drawer sign. Apley's compression negative. Neurologic: alert, oriented x3, grossly normal Psychiatric: mood/affect normal Skin: no rash Medical Decision Making Diagnostic Impression: Primary Impression: Knee pain Qualified Codes: M25.562 - Pain in left knee ER Course Patient presents with left knee pain. Differential includes strain,, bursitis, gout, gout, degenerative joint disease, other arthritis amongst others. Based on exam this does not appear to be a septic knee. Patient be evaluated with labs and x-ray. She will also be given a dose of Tylenol. She has a history of gastritis and is taking steroid inhalers. Labs unremarkable. X-ray no fractures, DJD. Slight effusion. Larry applied by tech. Position excellent tension excellent and neurovascular check by me is normal. Patient stable for outpatient observation and treatment Laboratory Tests Test 11/09/18 12:10 White Blood Count 10.0 K/UL (4.8-10.8) Red Blood Count 4.51 M/UL (4.20-5.40) Hemoglobin 14.9 G/DL (12.0-16.0) Hematocrit 45.7 % (37.0-47.0) Mean Corpuscular Volume 101 FL (80-99) H Mean Corpuscular Hemoglobin 33.0 PG (27.0-31.0) H Mean Corpuscular Hemoglobin Concent 32.6 G/DL (32.0-36.0) Red Cell Distribution Width 11.7 % (11.6-14.8) Platelet Count 271 K/UL (150-450) Mean Platelet Volume 8.1 FL (6.5-10.1) Neutrophils (%) (Auto) 60.8 % (45.0-75.0) Lymphocytes (%) (Auto) 28.3 % (20.0-45.0) Monocytes (%) (Auto) 8.2 % (1.0-10.0) Eosinophils (%) (Auto) 1.5 % (0.0-3.0) Basophils (%) (Auto) 1.2 % (0.0-2.0) Urine Color Yellow Urine Appearance Clear Urine pH 6 (4.5-8.0) Urine Specific Keavy 1.020 (1.005-1.035) Urine Protein 2+ (NEGATIVE) H Urine Glucose (UA) Negative (NEGATIVE) Urine Ketones 1+ (NEGATIVE) H Urine Blood Negative (NEGATIVE) Urine Nitrite Negative (NEGATIVE) Urine Bilirubin Negative (NEGATIVE) Urine Urobilinogen 4 MG/DL (0.0-1.0) H Urine Leukocyte Esterase 1+ (NEGATIVE) H Urine RBC 0-2 /HPF (0 - 2) Urine WBC 2-4 /HPF (0 - 2) Urine Squamous Epithelial Cells Few /LPF (NONE/OCC) Urine Bacteria None /HPF (NONE) Sodium Level 142 MMOL/L (136-145) Potassium Level 4.0 MMOL/L (3.5-5.1) Chloride Level 104 MMOL/L (98-107) Carbon Dioxide Level 30 MMOL/L (21-32) Anion Gap 8 mmol/L (5-15) Blood Urea Nitrogen 14 mg/dL (7-18) Creatinine 0.9 MG/DL (0.55-1.30) Estimate Glomerular Filtration Rate > 60 mL/min (>60) Glucose Level 74 MG/DL (74-106) Uric Acid 6.7 MG/DL (2.6-7.2) Calcium Level 8.8 MG/DL (8.5-10.1) Total Bilirubin 0.3 MG/DL (0.2-1.0) Aspartate Amino Transferase (AST) 19 U/L (15-37) Alanine Aminotransferase (ALT) 31 U/L (12-78) Alkaline Phosphatase 88 U/L (46-116) Total Protein 8.0 G/DL (6.4-8.2) Albumin 3.6 G/DL (3.4-5.0) Globulin 4.4 g/dL Albumin/Globulin Ratio 0.8 (1.0-2.7) L Other X-Ray Diagnostic Results Other X-Ray Diagnostic Results : X-Ray ordered: L knee # of Views/Limited Vs Complete: 3 View Indication: Pain Interpretation: no dislocation, no soft tissue swelling, no fractures, other - effusion Impression: Other Electronically Signed by: Electronically signed by Maikel Lott MD Last Vital Signs Date Time Temp Pulse Resp B/P (MAP) Pulse Ox O2 Delivery O2 Flow Rate FiO2 11/09/18 14:40 98.0 78 22 120/75 98 Room Air Status: improved Disposition: HOME, SELF-CARE Condition: Improved Scripts Acetaminophen (Tylenol) 325 Mg Tablet 650 MG ORAL Q6H PRN for Prn Pain/Headache/Temp > 101, #20 TAB 0 Refills Prov: Maikel Lott MD 11/09/18 Tramadol Hcl* (ULTRAM*) 50 Mg Tablet 50 MG ORAL Q6H PRN for For Pain, #6 TAB 0 Refills Prov: Maikel Lott MD 11/09/18 Maikel Lott MD Nov 09, 2018 12:03
--- NOTE | 2018-11-09 12:53 | Diagnostic Imaging Report ---
Indication: Pain Technique: 3 views of the left knee Comparison: None Findings: No suprapatellar effusion. No acute fractures. No dislocations. The joint spaces are preserved Impression: Negative
[2018-11-09 12:58] LABS: ANION GAP 8 mmol/L (5-15); BASOPHILS % (AUTO) 1.2 % (0.0-2.0); BLOOD UREA NITROGEN 14 mg/dL (7-18); CALCIUM 8.8 MG/DL (8.5-10.1); CARBON DIOXIDE 30 MMOL/L (21-32); CHLORIDE 104 MMOL/L (98-107); CREATININE 0.9 MG/DL (0.55-1.30); EOSINOPHILS % (AUTO) 1.5 % (0.0-3.0); HEMATOCRIT 45.7 % (37.0-47.0); HEMOGLOBIN 14.9 G/DL (12.0-16.0); LYMPHOCYTES % (AUTO) 28.3 % (20.0-45.0); MEAN CORPUSCULAR VOLUME 101 FL (80-99); MONOCYTES % (AUTO) 8.2 % (1.0-10.0); NEUTROPHILS % (AUTO) 60.8 % (45.0-75.0); PLATELET COUNT 271 K/UL (150-450); RED BLOOD COUNT 4.51 M/UL (4.20-5.40); RED CELL DISTRIBUTION WIDTH 11.7 % (11.6-14.8); SODIUM 142 MMOL/L (136-145)
[2018-11-09 12:59] LABS: APPEARANCE,URINE CLEAR; BILIRUBIN, URINE NEGATIVE (NEGATIVE); GLUCOSE, URINE (UA) NEGATIVE (NEGATIVE); KETONES,URINE 1+ (NEGATIVE); LEUKOCYTE ESTERASE ,URINE 1+ (NEGATIVE); NITRITE,URINE NEGATIVE (NEGATIVE); PH,URINE 6 (4.5-8.0); PROTEIN,URINE 2+ (NEGATIVE); UROBILINOGEN,URINE 4 MG/DL (0.0-1.0)
[2018-11-09 13:03] LABS: COLOR,URINE YELLOW
[2018-11-09 13:24] LABS: ALANINE AMINOTRANSFERASE 31 U/L (12-78); ALBUMIN 3.6 G/DL (3.4-5.0); ALBUMIN/GLOBULIN RATIO 0.8 (1.0-2.7); ALKALINE PHOSPHATASE 88 U/L (46-116); ASPARTATE AMINO TRANSFERASE 19 U/L (15-37); BILIRUBIN,TOTAL 0.3 MG/DL (0.2-1.0)
[2018-11-09] MEDS ORDERED: TYLENOL325 MG ORAL (14:34)
[2018-11-09] MEDS ORDERED: TRAMADOL HCL50 MG ORAL (14:34)
[2018-11-09 14:40] VITALS: BP 120/75
--- NOTE | 2018-11-09 14:41 | NUR ---
ER DISCHARGE NOTE: Patient is cleared to be discharged per ERMD, pt is aox4, on room air, with stable vital signs. pt was given dc and prescription instructions, pt was able to verbalize understanding, pt id band removed without complications. pt is able to ambulate with steady gait. pt took all belongings.
== END 2018-11-09 14:41 | disposition home or self-care (01) ==
LOC: EMR 12:34
DX: M25.562 Pain in left knee (principal); I10 Essential (primary) hypertension; J45.909 Unspecified asthma, uncomplicated
CPT/HCPCS: 36415; 80053; 81003; 84550; 85025; 99283

== ENCOUNTER 2019-02-06 22:55 | Emergency (ER) | payer OTHER ==
[~2019-02-06] VITALS: Ht 165.1 cm; Wt 108.0 kg
[~2019-02-06 22:55] MED LIST changes: +TYLENOL325 MG ORAL
[2019-02-06 23:00] VITALS: BP 134/95
--- NOTE | 2019-02-06 23:00 | NUR ---
ED Nurse Note: PT CAME TO ED FROM HOME C/O OF BILATERAL LEG AND FOOT SWELLING. AO4. NAD
[2019-02-06] MEDS ORDERED: Albuterol ud Inhalation HHN ONE (23:30)
[2019-02-06 23:41] LABS: APPEARANCE,URINE CLEAR; BILIRUBIN, URINE NEGATIVE (NEGATIVE); COLOR,URINE YELLOW; GLUCOSE, URINE (UA) NEGATIVE (NEGATIVE); KETONES,URINE NEGATIVE (NEGATIVE); LEUKOCYTE ESTERASE ,URINE 2+ (NEGATIVE); NITRITE,URINE NEGATIVE (NEGATIVE); PH,URINE 7 (4.5-8.0); PROTEIN,URINE 2+ (NEGATIVE); UROBILINOGEN,URINE 1 MG/DL (0.0-1.0)
[2019-02-06 23:42] LABS: BASOPHILS % (AUTO) 0.7 % (0.0-2.0); EOSINOPHILS % (AUTO) 1.9 % (0.0-3.0); HEMATOCRIT 43.5 % (37.0-47.0); HEMOGLOBIN 14.8 G/DL (12.0-16.0); LYMPHOCYTES % (AUTO) 31.7 % (20.0-45.0); MEAN CORPUSCULAR VOLUME 99 FL (80-99); MONOCYTES % (AUTO) 7.7 % (1.0-10.0); PLATELET COUNT 266 K/UL (150-450); RED CELL DISTRIBUTION WIDTH 11.9 % (11.6-14.8); WHITE BLOOD COUNT 9.7 K/UL (4.8-10.8)
[2019-02-06] MEDS ORDERED: Albuterol/Ipratropium 3ml neb HHN PRN (23:45)
[2019-02-06] MEDS ORDERED: Miralax 17gm pkt ORAL PRN (23:45)
[2019-02-06 23:49] LABS: BLOOD UREA NITROGEN 16 mg/dL (7-18); CALCIUM 9.3 MG/DL (8.5-10.1); CARBON DIOXIDE 31 MMOL/L (21-32); CHLORIDE 102 MMOL/L (98-107); CREATININE 0.9 MG/DL (0.55-1.30); POTASSIUM 3.7 MMOL/L (3.5-5.1); SODIUM 131 MMOL/L (136-145)
[2019-02-07] MEDS ORDERED: ALBUTEROL SULF8.5 GM INH (00:12)
[2019-02-07] MEDS ORDERED: FUROSEMIDE20 M1 ORAL (00:13)
--- NOTE | 2019-02-07 00:14 | Emergency Room Report ---
History of Present Illness General Chief Complaint: Edema Source: Patient Present Illness [facility] This is a 53-year-old female with a history of asthma. She's not taking any albuterol. She presents with chief complaint of bilateral lower extremity edema. Onset for the last week. She's been on her feet more. No fever or chills. Slight short of breath. No chest pain. No nausea no vomiting. No diaphoresis. Allergies: Coded Allergies: No Known Allergies (Unverified , 12/01/17) Patient History Past Medical History: see triage record, old chart reviewed, asthma Past Surgical History: none Pertinent Family History: none Social History: Denies: smoking Last Menstrual Period: 09/06 Now: No Immunizations: other Reviewed Nursing Documentation: PMH: Agreed; PSxH: Agreed Nursing Documentation-PMH Past Medical History: No History, Except For Hx Cardiac Problems: No Hx Hypertension: Yes Hx Pacemaker: No Hx Asthma: Yes Hx COPD: No Hx Diabetes: No Hx Cancer: No Hx Gastrointestinal Problems: No Hx Dialysis: No Hx Neurological Problems: No Hx Cerebrovascular Accident: No Hx Seizures: No Review of Systems Eye: Denies: eye pain, blurred vision ENT: Denies: ear pain, nose congestion, throat swelling Respiratory: Reports: shortness of breath; Denies: cough Cardiovascular: Denies: chest pain, palpitations Gastrointestinal: Denies: abdominal pain, diarrhea, nausea, vomiting Musculoskeletal: Denies: back pain, joint pain Skin: Denies: rash Neurological: Denies: headache, numbness Endocrine: Denies: increased thirst, increased urine Hematologic/Lymphatic: Denies: easy bruising All Other Systems: negative except mentioned in HPI Physical Exam Vital Signs Date Time Temp Pulse Resp B/P (MAP) Pulse Ox O2 Delivery O2 Flow Rate FiO2 02/06/19 22:59 98.4 110 14 92 Room Air 02/06/19 23:30 21 vitals with mild hypoxia Sp02 EP Interpretation: abnormal General Appearance: well appearing, no apparent distress, alert Head: normocephalic, atraumatic Eyes: bilateral eye PERRL, bilateral eye EOMI ENT: hearing grossly normal, normal pharynx Neck: full range of motion, supple, no meningismus Respiratory: chest non-tender, wheezing - Slight expiratory Cardiovascular #1: regular rate, rhythm, no murmur Gastrointestinal: normal bowel sounds, non tender, no mass, no organomegaly, no bruit, non-distended Musculoskeletal: back normal, gait/station normal, normal range of motion, other - 1+ edema Neurologic: alert, oriented x3 Psychiatric: mood/affect normal Skin: warm/dry Medical Decision Making Diagnostic Impression: Primary Impression: Asthma Qualified Codes: J45.21 - Mild intermittent asthma with (acute) exacerbation Additional Impression: Peripheral edema ER Course Patient with mild peripheral edema. No evidence of any ACS, PE, dissection or CHF to name a few. Wheezing cleared after nebulizer treatment. Patient felt better. She diuresed well. We'll discharge home. Rhythm Strip Diag. Results EP Interpretation: yes Rate: 88 Rhythm: NSR, no PVC's, no ectopy Chest X-Ray Diagnostic Results Chest X-Ray Diagnostic Results : Chest X-Ray Ordered: Yes # of Views/Limited/Complete: 1 View Indication: Shortness of Breath EP Interpretation: Yes Interpretation: no consolidation, no effusion, no pneumothorax, no acute cardiopulmonary disease Impression: No acute disease Electronically Signed by: Gonzalo Rainey MD Last Vital Signs Date Time Temp Pulse Resp B/P (MAP) Pulse Ox O2 Delivery O2 Flow Rate FiO2 02/06/19 23:42 110 20 97 Room Air 21 02/06/19 22:59 98.4 Status: improved Disposition: HOME, SELF-CARE Condition: Stable Scripts Furosemide* (LASIX*) 20 Mg Tablet 20 MG ORAL DAILY, #7 TAB Prov: Gonzalo Rainey MD 02/07/19 Albuterol Sulfate* (ALBUTEROL SULFATE MDI*) 8.5 Gm Hfa.aer.ad 2 PUFF INH Q4H PRN for cough/wheezing, #1 EA 0 Refills Prov: Gonzalo Rainey MD 02/07/19 Referrals: [facility],REFERRING (PCP) Patient Instructions: Edema, [id number] Additional Instructions: Elevate legs. Wear compression stocking. Follow-up with your DrElena in 7 days. Return if symptom worsen. Gonzalo Rainey MD February 07, 2019 00:14
[2019-02-07 00:30] VITALS: BP 134/95
--- NOTE | 2019-02-07 00:30 | NUR ---
ER DISCHARGE NOTE: Patient is cleared to be discharged per ERMD, pt is aox4, on room air, with stable vital signs. pt was given dc and prescription instructions, pt was able to verbalize understanding, pt id band and iv site removed without complications. pt is able to ambulate with steady gait. pt took all belongings.
[2019-02-07] MEDS ORDERED: Heparin 5000 units/ml inj SUBQ SCH (09:00)
--- NOTE | 2019-02-07 13:34 | Diagnostic Imaging Report ---
Indication: Dyspnea Comparison: 10/20/2017 A single view chest radiograph was obtained. Findings: Lungs are clear. Heart is enlarged. No infiltrate identified. Bones are unremarkable. IMPRESSION: No change. No acute findings
== END 2019-02-07 00:30 | disposition home or self-care (01) ==
LOC: EMR 23:19
DX: J45.21 Mild intermittent asthma with (acute) exacerbation (principal); R60.9 Edema, unspecified; I10 Essential (primary) hypertension
CPT/HCPCS: 36415; 71045; 80048; 81001; 83880; 84484; 85025; 94640; 96374; 99284; J1940

== ENCOUNTER 2019-04-20 21:46 | Emergency (ER) | payer OTHER ==
[~2019-04-20] VITALS: Ht 165.1 cm; Wt 90.7 kg
[~2019-04-20 21:46] MED LIST changes: +FUROSEMIDE20 M1 ORAL
--- NOTE | 2019-04-20 21:50 | NUR ---
ED Nurse Note: Patient walked into ED c/o SOB for 45 minutes, states that shes having an asthma attack, patient used a puff of her albuterol inhaler to which she found no relief. patient presents with wheezing on the upper loves inspiratory. patient is alert and oriented x4, ambulatory with a steady gait, VSS
[2019-04-20 22:00] VITALS: BP 148/88
--- NOTE | 2019-04-20 22:09 | Emergency Room Report ---
History of Present Illness General Chief Complaint: Asthma Source: Patient Present Illness HPI HPI: 53-year-old female with a history of asthma presents for evaluation of shortness of breath. Patient states her asthma is typically controlled well with albuterol however since moving to a new place approximately 1 month ago she has been exposed to excess dust and other allergen triggers as they have been wrapping up wallpaper. She ran out of albuterol earlier this morning is become more short of breath throughout the day. She denies any infectious symptoms such as cough, itchy eyes, runny nose, fever and denies chest pain, abdominal pain, vomiting, diarrhea or rash. She states she has felt particularly wheezy over the last week and appears to be getting worse. Does not currently have a PMD but is being reassigned to a new one after her former PMD retired PMH: Asthma, hypertension PSH: Denies Allergies: Seasonal allergies, denies allergies to medications Social Hx: Denies tobacco, alcohol or drug use Allergies: Coded Allergies: No Known Allergies (Unverified , 12/01/17) Patient History Last Menstrual Period: menopause Now: No Nursing Documentation-PMH Hx Cardiac Problems: No Hx Hypertension: Yes Hx Pacemaker: No Hx Asthma: Yes Hx COPD: No Hx Diabetes: No Hx Cancer: No Hx Gastrointestinal Problems: No Hx Dialysis: No Hx Neurological Problems: No Hx Cerebrovascular Accident: No Hx Seizures: No Review of Systems All Other Systems: negative except mentioned in HPI Physical Exam Vital Signs Date Time Temp Pulse Resp B/P (MAP) Pulse Ox O2 Delivery O2 Flow Rate FiO2 04/20/19 21:52 99.0 102 20 148/103 (118) 98 Room Air General: Awake and alert, no acute distress HEENT: NC/AT. EOMI. Cardiovascular: RRR. S1 and S2 normal. No murmur appreciated Resp: Normal work of breathing. No cough, no crackles appreciated. Reduced aeration bilaterally. Faint expiratory and inspiratory wheezes in all lung armijo. Speaking in full sentences, no respiratory distress Skin: Intact. No abrasions, laceration or rash over the exposed skin MSK: Normal tone and bulk. Moving all extremities. No obvious deformity. Neuro: Awake and alert. Mentating appropriately. Medical Decision Making ER Course 53-year-old female with a history of asthma presents for 1 month wheezing and shortness of breath symptoms acutely worsening over the past week having run out of albuterol today becoming more severe prompting emergency department evaluation. She is in no acute distress, speaking full sentences and is 96% on pulse ox sitting comfortably in her bed. She does have reduced aeration bilaterally and inspiratory and expiratory wheezes consistent with an asthma exacerbation. Differential also includes bronchitis, pneumonia, URI. Will treat with oral steroids, DuoNeb and albuterol breathing treatments and order a chest x-ray. Overall, she is well-appearing and if clinically improved I anticipate she may be discharged home Chest X-Ray Diagnostic Results Chest X-Ray Diagnostic Results : Chest X-Ray Ordered: Yes # of Views/Limited/Complete: 1 View Indication: Shortness of Breath EP Interpretation: Yes Interpretation: no consolidation, no effusion, no pneumothorax, no acute cardiopulmonary disease Impression: No acute disease Electronically Signed by: Electronically signed by Dr. Bernardo Lozada Reevaluation Time: 00:40 Last Vital Signs Date Time Temp Pulse Resp B/P (MAP) Pulse Ox O2 Delivery O2 Flow Rate FiO2 04/20/19 21:52 99.0 102 20 148/103 (118) 98 Room Air Reevaluation Impression Chest x-ray shows no evidence of infiltrate or other disease at this time. Official read is pending. Patient chronically improved after receiving DuoNeb and several albuterol treatments as an addition to steroids. She will be discharged home to follow-up with PMD or clinic. Albuterol inhaler was refilled and the patient was discharged home on 5 days of prednisone. We discussed reasons to return to the emergency department as well as imaging results and need to follow-up with a medical doctor. She understands and agrees with this treatment plan will be discharged home. Please note that this report is being documented using DocRun technology. This can lead to erroneous entry secondary to incorrect interpretation by the dictating instrument. Scripts Prednisone* (PREDNISONE*) 50 Mg Tablet 50 MG ORAL DAILY for 5 Days, #10 TAB 0 Refills Prov: Bernardo Lozada MD 04/21/19 Albuterol Sulfate* (ALBUTEROL SULFATE MDI*) 8.5 Gm Hfa.aer.ad 2 PUFF INH Q4H PRN for cough/wheezing, #1 EA 0 Refills Prov: Bernardo Lozada MD 04/21/19 Bernardo Lozada MD Apr 20, 2019 22:09
[2019-04-20] MEDS: Albuterol ud Inhalation HHN SCH ×4 (22:11→23:51)
[2019-04-20] MEDS ORDERED: Albuterol/Ipratropium 3ml neb HHN ONE (22:15)
[2019-04-21] MEDS: Albuterol ud Inhalation HHN SCH ×2 (00:09→00:17)
[2019-04-21] MEDS ORDERED: ALBUTEROL SULF8.5 GM INH (00:39)
[2019-04-21] MEDS ORDERED: PREDNISONE50 MG ORAL (00:39)
[2019-04-21 00:50] VITALS: BP 138/80
--- NOTE | 2019-04-21 13:23 | Diagnostic Imaging Report ---
Indication: Shortness of breath Technique: One view of the chest Comparison: 02/06/2019 Findings: Body habitus limits evaluation. No definite acute infiltrates, effusions, or congestion. Normal heart size. No significant change Impression: No acute process
== END 2019-04-21 00:51 | disposition home or self-care (01) ==
LOC: EMR 22:18
DX: J45.909 Unspecified asthma, uncomplicated (principal); I10 Essential (primary) hypertension
CPT/HCPCS: 71045; 94640; 99284; J7512; J7620

== ENCOUNTER 2020-03-04 19:01 | Emergency (ER) | payer SELFPAY ==
[~2020-03-04] VITALS: Ht 165.1 cm; Wt 113.4 kg
[~2020-03-04 19:01] MED LIST changes: +PREDNISONE50 MG ORAL
[2020-03-04 19:25] VITALS: BP 141/97
--- NOTE | 2020-03-04 19:25 | NUR ---
ED Nurse Note: Pt walked into ED from home for c/o pain and rash in bilat axillary area. Pt states she has had this issue for a long time, but the pain became worse today. Pt is aaox4, no respiratory or cardiac distress. Mild drainage noted to axillary area.
[2020-03-04] MEDS ORDERED: IBUPROFEN600 M1 ORAL (20:03)
[2020-03-04] MEDS ORDERED: BACTRIM DS TAB1 EAC1 ORAL (20:03)
[2020-03-04 20:05] VITALS: BP 140/90
--- NOTE | 2020-03-04 20:05 | NUR ---
ER DISCHARGE NOTE: Patient is cleared to be discharged per ERMD, pt is aox4, on room air, with stable vital signs. pt was given dc and prescription instructions, pt was able to verbalize understanding, pt id band removed. pt is able to ambulate with steady gait. pt took all belongings.
--- NOTE | 2020-03-04 20:09 | Emergency Room Report ---
History of Present Illness General Chief Complaint: Skin Rash/Abscess Source: Patient Present Illness HPI Patient presents with complaints of bilateral axilla discomfort Reports that she has had this problem off and on over the years it does exacerbate at times and over the past 3 days it feels like it has exacerbated She reports increased discharge denies any fevers or chills denies any chest pain or shortness of breath Denies any vomiting or diarrhea denies any back or flank pain patient has not seen a specialist for this Allergies: Coded Allergies: No Known Allergies (Unverified , 12/01/17) COVID-19 Screening Contact w/high risk pt: No Recent Travel to affected area: No Experienced COVID-19 symptoms?: No COVID-19 Testing performed ROLLER GOLD LEAF: No Patient History Past Medical History: see triage record Last Menstrual Period: 2017 Now: No : 1 Para: 1 Reviewed Nursing Documentation: PMH: Agreed; PSxH: Agreed Nursing Documentation-PMH Hx Cardiac Problems: No Hx Hypertension: Yes Hx Pacemaker: No Hx Asthma: Yes Hx COPD: No Hx Diabetes: No Hx Cancer: No Hx Gastrointestinal Problems: No Hx Dialysis: No Hx Neurological Problems: No Hx Cerebrovascular Accident: No Hx Seizures: No Review of Systems All Other Systems: negative except mentioned in HPI Physical Exam Vital Signs Date Time Temp Pulse Resp B/P (MAP) Pulse Ox O2 Delivery O2 Flow Rate FiO2 03/04/20 19:09 99.0 116 16 141/97 (112) 94 Room Air Sp02 EP Interpretation: reviewed, normal General Appearance: well appearing, no apparent distress Head: normocephalic, atraumatic Eyes: bilateral eye PERRL, bilateral eye EOMI ENT: hearing grossly normal, normal pharynx, TMs + canals normal, uvula midline Neck: full range of motion, supple, no meningismus, no bony tend Respiratory: lungs clear, normal breath sounds, no rhonchi, no respiratory distress, no retraction, no accessory muscle use Cardiovascular #1: normal peripheral pulses, regular rate, rhythm, no edema, no gallop, no JVD, no murmur Gastrointestinal: normal bowel sounds, non tender, soft, no mass, no organomegaly, non-distended, no guarding, no hernia, no pulsatile mass, no rebound Genitourinary: no CVA tenderness Musculoskeletal: normal inspection Neurologic: motor strength/tone normal, hash slinger III-XII nml as tested, oriented x3 , sensory intact, responsive Psychiatric: mood/affect normal Skin: other - Separative hidradenitis bilateral axilla no obvious dermatomal spread Lymphatic: normal inspection, no adenopathy Medical Decision Making Diagnostic Impression: Primary Impression: superative hydradenitis ER Course The area in question is very indicative of superative hidradenitis Other differential such as abscess cellulitis entertained patient will placed on oral antibiotics requires close Outpatient follow-up with specialty consideration Last Vital Signs Date Time Temp Pulse Resp B/P (MAP) Pulse Ox O2 Delivery O2 Flow Rate FiO2 03/04/20 19:25 99.0 116 16 141/97 94 Room Air Status: unchanged Disposition: HOME, SELF-CARE Condition: Stable Scripts Ibuprofen* (MOTRIN*) 600 Mg Tablet 600 MG ORAL Q6H PRN for FOR PAIN, #20 TAB 0 Refills Prov: Natasha Kelly DO 03/04/20 Trimethoprim/Sulfamethoxazole 160/800* (BACTRIM DS TABLET*) 1 Each Tablet 1 TAB ORAL Q12H, #14 TAB 0 Refills Prov: Natasha Kelly DO 03/04/20 Referrals: Fabiano Baltazar MD, [place] [facility] + [facility] - Peds ER - Patient Instructions: Abscess, [id number] Additional Instructions: Patient is provided with the discharge instructions notified to follow up with primary doctor in the next 2-3 days otherwise return to the er with any worsening symptoms. Please note that this report is being documented using EasyCopay technology. This can lead to erroneous entry secondary to incorrect interpretation by the dictating instrument. Natasha Kelly DO Mar 04, 2020 20:09
== END 2020-03-04 20:05 | disposition home or self-care (01) ==
LOC: EMR 19:13
DX: L73.2 Hidradenitis suppurativa (principal); M79.622 Pain in left upper arm; M79.621 Pain in right upper arm; I10 Essential (primary) hypertension
CPT/HCPCS: 99282